=== PATIENT | female | born 1995 | race Caucasian/White ===

== ENCOUNTER → 2017-01-20 | Outpatient (CLI) | payer BC | LOC: BMCIMAGING 08:06 | PROVIDERS: ATTEND Physician Assistant | DX: R10.84 Generalized abdominal pain (principal) ==

== ENCOUNTER → 2017-01-21 | Outpatient (CLI) | payer BC | LOC: BMCIMAGING 08:38 | PROVIDERS: ATTEND Obstetrics & Gynecology | DX: Z87.42 Personal history of other diseases of the female genital tract (principal) ==